=== PATIENT | female | born 1990 | race Caucasian/White ===

== ENCOUNTER 2020-01-07 14:54 | Outpatient (CLI) | payer MEDICAID, SELFPAY ==
--- NOTE | 2020-02-11 12:13 | WPDHOLTEREM ---
Holter/Event Monitor Holter/Event Monitor Date of procedure: 01/07/20 Procedure Type: 48 hour holter monitor Indications: Palpitations Conclusion: 1. 48 hour holter monitor on 01/07/20. 2. Underlying rhythm is sinus rhythm. HR range 56-160 bpm; average HR 92 bpm. 3. No premature supraventricular complexes. No supraventricular tachycardia. 4. No prematur ventricular complexes. No ventricular tachycardia. 5. No sinoatrial or atrioventricular blocks. No significant pauses greater than 2 seconds. 6. No symptoms available for correlation.
== END 2020-01-07 14:55 | disposition home or self-care (01) ==
LOC: ANHCARD 15:06
PROVIDERS: PCP Physician Assistant; Visit Provider Physician Assistant
DX: R00.2 Palpitations (principal)
CPT/HCPCS: 93225; 93226

== ENCOUNTER 2020-07-21 17:15 | Emergency (ER) | payer BC, SELFPAY ==
--- NOTE | ~2020-07-21 | XR_ITS ---
XR chest 1V portable DATE: 07/21/2020 18:47 INDICATION: Fever, cough, body aches for 4 days. TECHNIQUE: Portable AP chest on 07/21/2020 at 1839 hours COMPARISON: 10/24/2017 PA and lateral chest FINDINGS: Normal heart size. No hilar or mediastinal enlargement. No pulmonary infiltrate or consolid ation, pleural effusion or pulmonary vascular congestion or pneumothorax. Included skeletal structures are unremarkable. IMPRESSION: No active cardiopulmonary disease Reviewed, dictated and finalized at location A.
[2020-07-21 17:20] VITALS: BP 110/74; PULSE 102; RESP 17; TEMP 37.3; O2SAT 99
--- NOTE | 2020-07-21 17:32 | ED.ABDPAIN ---
HPI - Abdominal Pain General Chief Complaint: Abdominal Pain Stated Complaint: cough/vomiting/blood stool/diarrhea/fever Time Seen by Provider: 07/21/20 17:32 Source: patient Mode of arrival: ambulatory Limitations: no limitations History of Present Illness HPI narrative: 29 years old white female presents with cough, body aches, intermittent fever, diarrhea, sometimes have tinge of blood in it. The symptoms started 4 days ago. Patient received 2 25 mg of Aleve at 11:00 this morning. Patient diarrhea is slowing down after started on Imodium. Patient denies exposure to anybody with known having COVID-19. Patient does not work, lives alone, history of depression, anxiety and insomnia. Patient reports going out for shopping. Related Data Home Medications Medication Instructions Recorded Confirmed bupropion HCl [Wellbutrin XL] 150 mg PO QAM 07/21/20 clonazepam 0.5 mg PO DAILY 07/21/20 escitalopram oxalate [Lexapro] 5 mg PO DAILY 07/21/20 zolpidem [Ambien] 10 mg PO HS PRN 07/21/20 Allergies Allergy/AdvReac Type Severity Reaction Status Date / Time No Known Allergies Allergy Unverified 07/21/20 17:58 Review of Systems Review of Systems: Narrative: CONSTITUTIONAL: Denies fever, chills, or sweats. EYES: Denies visual changes, redness, or discharge. ENT: Denies rhinorrhea, congestion, sore throat, or otalgia. CARDIOVASCULAR: Denies chest pain, palpitations, or edema. RESPIRATORY: Denies cough or dyspnea. GASTROINTESTINAL: Denies abdominal pain, nausea, vomiting, or diarrhea. GENITOURINARY: Denies dysuria or hematuria. SKIN: Denies rash or itching. MUSCULOSKELETAL: Denies back pain, joint pain, or myalgia. NEUROLOGIC: Denies headache, numbness, or weakness. PSYCHIATRIC: Denies anxiety or depression. [facility] Past Medical History Medical History Anxiety Depression Insomnia Family History Family History Other Diabetes mellitus Family history of malignant neoplasm Social History Social History Smoking status: Never smoker Alcohol intake: never Gender identity (if verbalized by the patient): Female Exam Narrative: Exam Narrative: General appearance: Well-developed, well-nourished Skin: Normal color Head: Normocephalic, nontraumatic Eyes: Clear conjunctiva ENT: Oropharynx normal, ears normal, nose normal Neck: Supple, nontender Chest and respiratory: Airway patent, no respiratory distress, no accessory muscle use Heart: Regular rate/rhythm Abdomen: Soft, nontender, no organomegaly, quiet bowel sounds Vascular: Normal peripheral pulses, normal capillary refill. Musculoskeletal: Normal range of motion, nontender back Neurologic: Alert and oriented ?3, [employer] is normal as tested, no gross motor deficit Course Course Emergency Course: Stable Vital Signs Vital signs: Vital Signs Temperature 37.3 C 07/21/20 17:20 Pulse Rate 102 H 07/21/20 17:20 Respiratory Rate 17 07/21/20 17:20 Blood Pressure 110/74 07/21/20 17:20 Pulse Oximetry 99 07/21/20 17:20 Temperature 37.3 C 07/21/20 17:20 Pulse Rate 102 H 07/21/20 17:20 Respiratory Rate 17 07/21/20 17:20 Blood Pressure 110/74 07/21/20 17:20 Pulse Oximetry 99 07/21/20 17:20 MDM - Abdominal Pain MDM Narrative Medical decision making narrative: Viral syndrome, COVID-19 infection is my concern Labs, chest x-ray, IV fluid, COVID-19 test ordered. Further plan to follow Differential Diagnosis Differential diagnosis: Likely gastroenteritis and other (COVID-19 infection, electrolyte imbalance) Cr
[2020-07-21] MEDS: SODIUM CHLORIDE 0.9% IV 1,000 ML 999 ML IV CONT (18:30)
[2020-07-21 18:59] LABS: Basophils Percent Auto 0.6 % (0.2-1.2); Eosinophils Percent Auto 0.4 % (0-4.4); Hematocrit 33.9 % (37.0-47.0); Hemoglobin 11.4 g/dL (12.0-15.0); Immature Granulocyte Absolute 0.09 K/mm3 (0.00-0.031); Immature Granulocyte Percent A 1.8 % (0-0.5); Lymphocytes Absolute Auto 1.32 K/mm3 (0.9-3.2); Lymphocytes Percent Auto 25.8 % (18.3-44.2); Mean Corpuscular HGB Conc 33.6 g/dl (32-36); Mean Corpuscular Hemoglobin 28.1 pg (26-34); Mean Corpuscular Volume 83.5 fl (80-100); Mean Platelet Volume 11.2 fl (7.4-10.4); Monocytes Absolute Auto 0.9 K/mm3 (0.1-0.6); Monocytes Percent Auto 16.6 % (2.6-8.5); Neutrophils Absolute Auto 2.8 K/mm3 (1.3-6.7); Neutrophils Percent Auto 54.8 % (45.5-73.1); Platelet Count Result 225 k/mm3 (150-375); Red Blood Count 4.06 M/mm3 (4.2-5.4); Red Cell Distribution Width 13.2 % (11.5-14.5); White Blood Count 5.1 K/mm3 (4.5-10.0)
[2020-07-21 19:08] LABS: Add Urine Microscopic? YES; Appearance Urine Clear (Clear); Bacteria Urine Trace /hpf; Bilirubin Urine Negative (Negative); Blood Urine Negative (Negative); Color Urine Yellow (Yellow); Glucose Urine UA Negative (Negative); Ketones Urine Negative (Negative); Leukocyte Esterase Ur Negative LEU/UL (Negative); Nitrate Urine Negative (Negative); Protein Urine 1+ mg/dL (Negative); RBC Urine 0-2 /hpf (0-2); Specific Grav Ur 1.009 (1.001-1.035); Squamous Epithelial Cell Urine Few /hpf (Few); Urobilinogen Urine Negative mg/dL (<2.0); WBC Urine 0-3 /hpf
[2020-07-21 19:14] LABS: Alanine Aminotransferase 17 U/L (4-35); Albumin Level 4.1 g/dL (3.5-5.1); Alkaline Phosphatase 107 U/L (38-126); Anion Gap 9 mmol/L (8-16); Aspartate Amino Transferase 30 U/L (14-36); Bilirubin,Total 1.1 mg/dL (0.2-1.3); Blood Urea Nitrogen 8 mg/dL (7-17); Calcium 8.2 mg/dL (8.4-10.2); Carbon Dioxide 31 mmol/L (22-30); Chloride 92 mmol/L (98-107); Estimated CRCL calculation 117 ml/min; Estimated Glomerular Filt Rate > 60; Glucose 81 mg/dL (65-105); Lipase 50 U/L (23-300); Potassium 2.8 mmol/L (3.4-5.0); Sodium 132 mmol/L (137-145)
[2020-07-21 19:29] LABS: Beta HCG Quantitative < 2.39 mIU/ML
[2020-07-21] MEDS: LACTATED RINGERS 1,000 ML 999 ML IV CONT (19:32)
[2020-07-21] MEDS: POTASSIUM CHLORIDE 20 MEQ TABLET 40 MEQ PO (19:32)
[2020-07-21 20:35] VITALS: BP 112/73; PULSE 99; RESP 18; O2SAT 99
[2020-07-21 21:19] VITALS: BP 134/78; PULSE 94; RESP 20; TEMP 37.1; O2SAT 99
[2020-07-22 13:52] LABS: SARS-CoV-2 RNA PCR Negative
== END 2020-07-21 21:19 | disposition home or self-care (01) ==
PROVIDERS: Emergency Medicine; Emergency Provider Emergency Medicine; PCP Physician Assistant
DX: B34.9 Viral infection, unspecified (principal); Z20.828 Contact with and (suspected) exposure to other viral communicable diseases; F41.9 Anxiety disorder, unspecified; F32.9 Major depressive disorder, single episode, unspecified; G47.00 Insomnia, unspecified
CPT/HCPCS: 36415; 71045; 80053; 81001; 83605; 83690; 84702; 85025; 87635; 96360; 96361; 99283; A9270; C9803; J7030; J7120; U0003

== ENCOUNTER 2022-02-24 23:20 | Emergency (ER) | payer BC, MEDICAID, SELFPAY ==
--- NOTE | ~2022-02-24 | XR_ITS ---
EXAMINATION: XR chest 2V EXAM DATE: 02/25/2022 00:37 INDICATION: Chest pain. TECHNIQUE: Frontal and lateral projections of the chest obtained and reviewed. Comparison is made to prior examination from 07/21/2020. FINDINGS: The lungs are clear. There are no pleural effusions. The cardiomediastinal silhouette is within normal limits. There is no pneumothorax suspected. The bones and soft tissues are unremarkab le. IMPRESSION: No acute cardiopulmonary findings. Reviewed, dictated and finalized at location A.
[2022-02-24 23:23] VITALS: BP 126/83; PULSE 103; RESP 17; TEMP 36.3; O2SAT 100
[2022-02-25 00:34] LABS: Influenza A QL RT-PCR Positive (Negative); Influenza B QL RT-PCR Negative (Negative); SARS-CoV-2 RNA PCR Negative
--- NOTE | 2022-02-25 00:43 | ED.GENADULT ---
HPI - General Adult General Chief complaint: Upper Respiratory Infection Stated complaint: Cough for 16 days, pain with inspiration Time Seen by Provider: 02/24/22 23:27 Source: patient History of Present Illness HPI narrative: 31-year-old female presenting to the emergency department for evaluation of persistent cough and congestion. Patient states for the last 60 days she has had upper respiratory infection. Patient describes cough and chest tightness. Few days ago patient was started on amoxicillin and provided Tessalon Perles for cough. Patient states that she still feels chest pressure and shortness of breath. Patient denies any chest pain. Patient denies any associated nausea vomiting or diarrhea. Patient denies any prior cardiac history. Patient is not a smoker denies any pulmonary history. Patient has no prior history of PE or DVT. Patient denies any lower extremity pain or swelling. Patient has no recent long car rides or plane trips, patient is on oral control, pushpa. Related Data Home Medications Medication Instructions Recorded Confirmed bupropion HCl [Wellbutrin XL] 150 mg PO QAM 07/21/20 clonazepam 0.5 mg PO DAILY 07/21/20 escitalopram oxalate [Lexapro] 5 mg PO DAILY 07/21/20 zolpidem [Ambien] 10 mg PO HS PRN 07/21/20 amoxicillin-pot clavulanate tablet 02/24/22 benzonatate mg PO 02/24/22 Allergies Allergy/AdvReac Type Severity Reaction Status Date / Time No Known Allergies Allergy Verified 02/24/22 23:51 Review of Systems Review of Systems: CONSTITUTIONAL: Denies fever, chills, or sweats. EYES: Denies visual changes, redness, or discharge. ENT: Denies rhinorrhea, congestion, sore throat, or otalgia. CARDIOVASCULAR: Denies chest pain, palpitations, or edema. RESPIRATORY: Cough and congestion GASTROINTESTINAL: Denies abdominal pain, nausea, vomiting, or diarrhea. GENITOURINARY: Denies dysuria or hematuria. SKIN: Denies rash or itching. MUSCULOSKELETAL: Denies back pain, joint pain, or myalgia. [facility] Past Medical History Medical History (Updated 02/25/22 @ 01:07 by Ja Benton MD) Anxiety Depression Insomnia Family History Family History Other Diabetes mellitus Family history of malignant neoplasm Social History Social History Smoking status: Never smoker Alcohol intake: never Gender identity (if verbalized by the patient): Female Course Course Emergency Course: APPEARANCE: Well appearing, no pain, no distress, well-nourished. HEAD: normocephalic, atraumatic. EYES: PERRLA/EOMI, conjunctivae clear. NOSE: Normal no drainage NECK: Supple. No adenopathy, no masses. RESPIRATORY: Airway patent, respirations nonlabored. Clear to auscultation bilaterally, no rales, rhonchi, wheezing. CARDIOVASCULAR: Regular rate and rhythm without murmurs rubs or gallops. ABDOMINAL: Soft, nontender, nondistended, normal bowel sounds MUSCULOSKELETAL: Moves all extremities. Strength/ROM intact, No edema, No calf tenderness. NEURO: Alert. Cranial nerves II through XII intact. Grossly intact SKIN: Warm, dry. Normal Color Vital Signs Vital signs: Vital Signs Temperature 97.3 F L 02/24/22 23:23 Pulse Rate 103 H 02/24/22 23:23 Respiratory Rate 17 02/24/22 23:23 Blood Pressure 126/83 02/24/22 23:23 Pulse Oximetry 100 02/24/22 23:23 Temperature 97.3 F L 02/24/22 23:23 Pulse Rate 97 02/25/22 01:21 Respiratory Rate 16 02/25/22 01:21 Blood Pressure 116/81 02/25/22 01:21 Pulse Oximetry 100 02/25/22 01:21 Medical Decision Making MDM Narrative Medical decision making narrative: D-dimer was negative so low concern for pulmonary medicine. Patient did test positive for influenza A. Patient was updated on the results of her work-up and plan for treatment at home. All questions and concerns were addressed. Vital Signs Vital Signs: Vital Signs Temperat
[2022-02-25] MEDS: ALBUTEROL SULFATE NEB 2.5 MG/0.5 ML INH 5 MG INHALATION (00:53)
[2022-02-25 01:17] LABS: D Dimer 0.23 ug/mL (<0.48)
[2022-02-25 01:21] VITALS: BP 116/81; PULSE 97; RESP 16; O2SAT 100
== END 2022-02-25 01:32 | disposition home or self-care (01) ==
PROVIDERS: Emergency Provider Emergency Medicine; PCP Physician Assistant
DX: J10.1 Influenza due to other identified influenza virus with other respiratory manifestations (principal); F41.9 Anxiety disorder, unspecified; F32.A Depression, unspecified; G47.00 Insomnia, unspecified; Z20.822 Contact with and (suspected) exposure to COVID-19
CPT/HCPCS: 36415; 71046; 85380; 87502; 94640; 99283; C9803; U0003; U0005

== ENCOUNTER 2022-04-29 19:25 | Emergency (ER) | payer MEDICAID, SELFPAY ==
--- NOTE | ~2022-04-29 | XR_ITS ---
EXAMINATION: XR chest 2V Exam Date/Time: 04/29/2022 19:45 CDT HISTORY: shortness of breath, cough Comparison: 02/25/2022. RESULT: Lines, tubes, and devices: None. Lungs and pleura: Clear. Cardiomediastinal silhouette: Stable cardiomediastinal silhouette. Other: No acute osseous or upper abdominal finding. IMPRESSION: No acute cardiopulmonary process. Reviewed, dictated and finalized at location K.
[2022-04-29 19:38] VITALS: BP 139/95; PULSE 104; RESP 20; TEMP 37.2; O2SAT 99
--- NOTE | 2022-04-29 19:44 | ECG_ITS ---
Measurements Intervals [place] Rate: 93 P: 38 DE: 135 QRS: 28 QRSD: 85 T: 46 QT: 333 QTc: 414 Interpretive Statements SINUS RHYTHM NORMAL ECG NO PREVIOUS ECG AVAILABLE FOR COMPARISON Electronically Signed On 04-30-2022 12:36:06 CDT by Demetrius Jones M.D.
--- NOTE | 2022-04-29 19:50 | ED.GENADULT ---
HPI - General Adult General Chief complaint: Shortness of Breath/Dyspnea Stated complaint: SOB Source: patient Mode of arrival: ambulatory Limitations: no limitations History of Present Illness HPI narrative: Patient presents for evaluation of shortness of breath. She indicates she has experienced shortness of breath for several months. She states at times she develops a dull discomfort in her back between her scapulas. She was experiencing this earlier so decided to come in for further evaluation. She reports hot flashes, occasional cough, nausea and wheezing. She denies objective fever, chills, palpitations, vomiting, diarrhea, body aches, chest pain. A few of her coworkers tested positive for COVID within the last week. She had COVID in 2019. She has also been vaccinated for COVID. She had influenza earlier this year. She saw pulmonology in [place] on 04/23/22. She states she has PFT's ordered for May. She had a D-dimer during her 02/25/22 ER visit which was negative. She had a 48-hour monitor in 2019 that showed sinus rhythm with a rate between 56 and 160, average rate of 92, no pauses, no ventricular blocks, no premature ventricular complexes. She recently discontinued Samina. No swelling. No history of DVT or PE. She does not smoke. No recent smoke exposure. She recently had Wellbutrin and cymbalta doses decreased. She also has clonazepam ordered which she takes approximately once daily. No recent increase in stress or anxiety. Neb tx at hospital in past effective. She already has albuterol inhalers. Related Data Home Medications Medication Instructions Recorded Confirmed albuterol sulfate 90 mcg/actuation 1 inh inhalation DIRECTED 04/29/22 04/29/22 aerosol inhaler bupropion HCl 150 mg 24 hr tablet, 150 tablet PO DAILY 04/29/22 04/29/22 extended release clonazepam 0.5 mg tablet 0.5 tablet TID 04/29/22 04/29/22 duloxetine 30 mg capsule,delayed 30 cap PO DAILY 04/29/22 04/29/22 release zolpidem 10 mg tablet 10 tablet HS 04/29/22 04/29/22 Allergies Allergy/AdvReac Type Severity Reaction Status Date / Time No Known Allergies Allergy Verified 04/29/22 19:53 Review of Systems Review of Systems: CONSTITUTIONAL: Reports hot flashes. Denies fever, chills, or sweats. EYES: Denies visual changes, redness, or discharge. ENT: Denies rhinorrhea, congestion, sore throat, or otalgia. CARDIOVASCULAR: Denies chest pain, palpitations, or edema. RESPIRATORY: Reports shortness of breath, wheezing, nonproductive cough. GASTROINTESTINAL: Reports nausea. Denies abdominal pain, vomiting, or diarrhea. GENITOURINARY: Denies dysuria or hematuria. SKIN: Denies rash or itching. MUSCULOSKELETAL: Reports back pain. Denies joint pain, or myalgia. NEUROLOGIC: Denies headache, numbness, dizziness, or weakness. PSYCHIATRIC: Denies anxiety or depression. [facility] Past Medical History Medical History (Updated 04/29/22 @ 20:08 by CHRISTIAN Ribeiro, ) Anxiety Depression Hirsutism Insomnia PCOS (polycystic ovarian syndrome) Surgical History Surgical History (Updated 04/29/22 @ 19:58 by CHRISTIAN Ribeiro, ) No pertinent past surgical history Family History Family History Other Diabetes mellitus Family history of malignant neoplasm Social History Social History Smoking status: Never smoker Alcohol intake: never Substance use: never Gender identity (if verbalized by the patient): Female Spiritual care concerns: No Exam Narrative: GENERAL: Well-appearing, well-nourished, and in no acute distress. HEAD: Normocephalic, atraumatic. EYES: PERRLA and EOMI. ENT: Nares clear, no rhinorrhea or epistaxis. Mucous membranes moist. Mild posterior pharyngeal erythema without exudate. Uvula is midline. Bilateral TMs pearly salmon nonbulging NECK: Supple. No adenopathy or masses.
== END 2022-04-29 20:11 | disposition home or self-care (01) ==
PROVIDERS: Emergency Provider Nurse Practitioner; PCP Physician Assistant
DX: R06.02 Shortness of breath (principal); Z20.822 Contact with and (suspected) exposure to COVID-19; E28.2 Polycystic ovarian syndrome; F41.9 Anxiety disorder, unspecified; F32.A Depression, unspecified
CPT/HCPCS: 71046; 87081; 87426; 87804; 87880; 93005; 99213; C9803; G0463

== ENCOUNTER 2024-08-26 08:38 | Emergency (ER) | payer OTHER, SELFPAY ==
[2024-08-26 09:01] VITALS: BP 115/78; PULSE 97; RESP 16; TEMP 37.1; O2SAT 96
[2024-08-26 09:02] VITALS: BP 115/78; PULSE 97; RESP 16; TEMP 37.1; O2SAT 96
--- NOTE | 2024-08-26 09:03 | ED.URI ---
HPI - URI/Sore Throat General Chief Complaint: Upper Respiratory Infection Stated Complaint: strep throat Time Seen by Provider: 08/26/24 09:05 Source: patient Mode of arrival: ambulatory Limitations: no limitations History of Present Illness HPI Narrative: Shift is a 34-year-old female who presents with 3 days sore throat, fever, body aches. Patient has history strep. Reports fever 102. Denies any nausea vomiting diarrhea, ear pain, congestion. Has been taking Tylenol and Mucinex DM Related Data Home Medications Medication Instructions Recorded Confirmed clonazepam 0.5 mg tablet 1 mg PO BID 04/29/22 08/26/24 zolpidem 10 mg tablet 10 tablet HS 04/29/22 08/26/24 escitalopram oxalate 20 mg tablet 20 mg PO DAILY 08/26/24 08/26/24 medroxyprogesterone 10 mg tablet See Rx Instructions .Route .COMPLEX 08/26/24 08/26/24 Allergies Allergy/AdvReac Type Severity Reaction Status Date / Time No Known Allergies Allergy Verified 08/26/24 08:59 Review of Systems Review of Systems: All systems reviewed & are unremarkable except as noted in HPI and below Constitutional: Constitutional: Reports body ache(s), Reports fever(s), Denies headache(s), Denies malaise and Denies weakness Eyes: Eyes: Denies loss of vision ENT: Denies otalgia, Denies headache(s), Denies nasal congestion, Denies sinus pain and Reports sore throat Cardiovascular: Cardiovascular: Denies chest pain, Denies irregular heart rhythm and Denies dyspnea Respiratory: Respiratory: Denies cough and Denies dyspnea Gastrointestinal: Gastrointestinal: Denies abdominal pain, Denies melena, Denies hematochezia, Denies diarrhea, Denies nausea and Denies vomiting Musculoskeletal: Musculoskeletal: Denies back pain, Reports myalgias and Denies arthralgias Integumentary/Breasts: Skin/Breast: Denies pruritus and Denies rash Neurologic: Denies headache(s), Denies loss of vision and Denies weakness Psychiatric: Psychiatric: Reports no additional psychiatric complaints PMF Past Medical History Medical History Anxiety Depression Hirsutism Insomnia PCOS (polycystic ovarian syndrome) Surgical History Surgical History No pertinent past surgical history Family History Family History Other Diabetes mellitus Family history of malignant neoplasm Social History Social History Smoking status: Never smoker Alcohol intake: never Substance use: never Gender identity (if verbalized by the patient): Female Spiritual care concerns: No Comments At time of signature, agree with nursing past medical, surgical, social and family history. There is no relevant family history pertinent to the presenting complaint. Exam Const: General: cooperative, healthy appearing, comfortable, no acute distress and well nourished Nutritional Appearance: well nourished Orientation/consciousness: patient oriented x3 Limitations: no limitations HENMT: Head: normal to inspection, normocephalic and atraumatic Ears: hearing grossly normal bilaterally, external ears normal, TM's normal bilaterally and EAC's normal Face/Nose/Sinus: Normal external nose present, Normal nares present, Normal nasal mucous membranes and turbinates present, Normal septum present, normal facial exam, sinuses nontender and face symmetric Face and sinus: normal facial exam, sinuses nontender and face symmetric Mouth: Yes Normal oral and palatal mucosa present, Yes lip normal and Yes moist mucous membranes Teeth and gingiva: dentition normal Throat: uvula midline, abnormal tonsil bilateral erythema, exudates and hypertrophy 3+, posterior oropharynx abnormal edema, erythema and exudates and postnasal drainage Eyes: General: appearance normal, both eyes and all related structures Alignment and
[2024-08-26 09:30] LABS: EDSTREPNEGPOS1 Positive (Negative)
== END 2024-08-26 09:22 | disposition home or self-care (01) ==
PROVIDERS: Emergency Provider Nurse Practitioner Family
DX: J02.0 Streptococcal pharyngitis (principal); F41.9 Anxiety disorder, unspecified; F32.A Depression, unspecified; E28.2 Polycystic ovarian syndrome; L68.0 Hirsutism
CPT/HCPCS: 87880; 99213; G0463

== ENCOUNTER 2024-09-09 18:30 | Emergency (ER) | payer OTHER, SELFPAY ==
[2024-09-09 18:39] VITALS: BP 132/78; PULSE 81; RESP 18; TEMP 36.4; O2SAT 99
--- NOTE | 2024-09-09 18:42 | ED.SKABFB ---
HPI - Skin/Abscess/Foreign Bdy General Chief complaint: Skin/Abscess/Foreign Body Stated complaint: scalp rash Time Seen by Provider: 09/09/24 18:45 Source: patient, RN notes reviewed and old records reviewed Mode of arrival: ambulatory Limitations: no limitations History of Present Illness HPI narrative: patient presents with complaints of burning, itching, flaking to the scalp. She reports symptoms have been present for about 3 weeks. She denies changing hair products, soaps, shampoos. She reports symptoms have been getting worse. States that she is now having some hair loss as results. Related Data Home Medications Medication Instructions Recorded Confirmed clonazepam 0.5 mg tablet 1 mg PO BID 04/29/22 09/09/24 zolpidem 10 mg tablet 10 tablet HS 04/29/22 09/09/24 escitalopram oxalate 20 mg tablet 20 mg PO DAILY 08/26/24 09/09/24 medroxyprogesterone 10 mg tablet See Rx Instructions .Route .COMPLEX 08/26/24 09/09/24 Allergies Allergy/AdvReac Type Severity Reaction Status Date / Time No Known Allergies Allergy Verified 09/09/24 18:37 Review of Systems Review of Systems: All systems reviewed & are unremarkable except as noted in HPI and below Constitutional: Constitutional: Reports no additional constitutional complaints ENT: Reports system reviewed and no additional complaints, except as documented Cardiovascular: Cardiovascular: Reports no additional cardiovascular complaints Respiratory: Respiratory: Reports no additional respiratory complaints Gastrointestinal: Gastrointestinal: Reports no additional gastrointestinal complaints Integumentary/Breasts: Skin/Breast: Reports system reviewed and no additional complaints, except as docu and Reports as per HPI [facility] Past Medical History Medical History Anxiety Depression Hirsutism Insomnia PCOS (polycystic ovarian syndrome) Surgical History Surgical History No pertinent past surgical history Family History Family History Other Diabetes mellitus Family history of malignant neoplasm Social History Social History Smoking status: Never smoker Alcohol intake: never Substance use: never Gender identity (if verbalized by the patient): Female Spiritual care concerns: No Comments At the time of my signature, I reviewed and agree with the nursing past medical, surgical, social, and family history. There is no relevant family history pertinent to the patient complaint. Exam Const: General: cooperative, no acute distress, alert and awake Orientation/consciousness: oriented to person, oriented to place and oriented to time HENMT: Head: normal to inspection Resp: Effort & Inspection: normal respiratory effort and able to speak in complete sentences Auscultation: clear to auscultation bilaterally, no crackles, no rales, no rhonchi and no wheezes Cardio: Palpation: normal PMI Rate: regular rate Rhythm: regular rhythm Heart sounds: S1 normal heart sound present and S2 normal heart sound present Skin: General skin exam: dry skin and other (flakes, thickened skin to scalp) Neuro: General: oriented to person, oriented to place and oriented to time Cranial nerves: Yes CN's II-XII intact bilaterally Psych: Appearance: grossly normal Thought process: Normal thought process present Insight: Good insight present (Psych) Judgement: Good judgement present (Psych) Course Course Level of Care: Express Care Visit Vital Signs Vital signs: Reviewed MDM - Skin/Abscess/Foreign Bdy MDM Narrative Medical decision making narrative: Exam consistent with seborrheic dermatitis. Recommend coal tar shampoo, follow-up with primary and Dermatology. Discharge instructions reviewed with patient, as well as provided in writing per
== END 2024-09-09 18:55 | disposition home or self-care (01) ==
PROVIDERS: Emergency Provider Nurse Practitioner Family
DX: L21.9 Seborrheic dermatitis, unspecified (principal); Z79.899 Other long term (current) drug therapy
CPT/HCPCS: 99211; G0463

== ENCOUNTER 2025-05-15 19:19 | Emergency (ER) | payer OTHER, SELFPAY ==
[2025-05-15 19:20] VITALS: BP 114/55; PULSE 108; RESP 18; TEMP 36.7; O2SAT 99
[2025-05-15 19:37] LABS: EDUAAPPEAR Cloudy; EDUABILI Negative (Negative); EDUABLOOD Negative (Negative); EDUACOLOR1 Yellow; EDUAGLUCOSE Negative (Negative); EDUAKETONE Negative (Negative); EDUALEUKO Trace (Negative); EDUANITRATE Negative (Negative); EDUAPH 6.5; EDUAPROTEIN 1+ (Negative); EDUASPGRAVITY 1.025; EDUAUROBILI 0.2
--- NOTE | 2025-05-15 19:41 | ED.FEMALEGU ---
HPI - Female Genitourinary General Chief complaint: Urogenital-Female Stated complaint: UTI Source: patient Mode of arrival: ambulatory Limitations: no limitations History of Present Illness HPI Narrative: Patient is a 34-year-old female with PCOS who presents to clinic for complaints of a vaginal fishy odor, itching, and burning with urination x 1 week. She states that she used Femiclear [id number], but has not had any relief. Denies any fevers, nausea, vomiting, diarrhea, concerns for STDs, or history of kidney stones. Related Data Home Medications ?Medication ?Instructions ?Recorded ?Confirmed ?Last Taken ?Type clonazepam 0.5 mg tablet 1 mg PO BID 04/29/22 05/15/25 Unknown History zolpidem 10 mg tablet 10 tablet HS 04/29/22 09/09/24 Unknown History escitalopram oxalate 20 mg tablet 20 mg PO DAILY 08/26/24 05/15/25 Unknown History medroxyprogesterone 10 mg tablet See Rx Instructions .Route .COMPLEX 08/26/24 05/15/25 Unknown History clonazepam 1 mg tablet mg 05/15/25 Unknown History dextromethorphan IR 45 PO 05/15/25 Unknown History mg-bupropion ER 105 mg biphasic tablet (Auvelity) lurasidone 20 mg tablet mg 05/15/25 Unknown History pen needle, diabetic 31 gauge x 05/15/25 05/15/25 Unknown History 04/02 (TRUEplus Pen Needle) Allergies Allergy/AdvReac Type Severity Reaction Status Date / Time No Known Allergies Allergy Verified 05/15/25 19:26 Review of Systems Review of Systems: CONSTITUTIONAL: Denies body aches, fever, chills, or sweats. CARDIOVASCULAR: Denies chest pain, palpitations, or edema. RESPIRATORY: Denies cough or dyspnea. GASTROINTESTINAL: Denies abdominal pain, nausea, vomiting, or diarrhea. GENITOURINARY: Reports dysuria, vaginal fishy odor, and itching to vagina. Denies frequency, urgency, hematuria, flank pain, discharge. SKIN: Denies rash, itching, or wounds. MUSCULOSKELETAL: Denies back pain or myalgia. All systems reviewed & are unremarkable except as noted in HPI and below PMFSH Past Medical History Medical History Hirsutism PCOS (polycystic ovarian syndrome) Anxiety Insomnia Depression Surgical History Surgical History No pertinent past surgical history Family History Family History Other Diabetes mellitus Family history of malignant neoplasm Social History Social History Smoking status: Never smoker Alcohol intake: never Substance use: never Gender identity (if verbalized by the patient): Female Spiritual care concerns: No Comments At time of signature, I have reviewed and agree with nursing past medical, surgical, social and family history unless otherwise noted. Please see nursing chart for further information. There is no relevant family history pertinent to the presenting complaint. Exam Narrative: GENERAL: Well-appearing and in no acute distress. ENT: Mucous membranes pink and moist. NECK: Normal AROM. ?Supple. ? CHEST: ?No respiratory distress. Clear to auscultation. HEART: Regular rate and rhythm. ABDOMEN: Soft, nontender, nondistended, normal active bowel sounds. ?No CVA tenderness. : Patient deferred exam. SKIN: Warm, dry, no rash. NEURO: No focal deficits. Alert and oriented x3. Gait steady. PSYCH: ?Normal affect. ? Course Course Level of Care: Express Care Visit Vital Signs Vital signs: Vital Signs Temperature 98.0 F 05/15/25 19:20 Pulse Rate 108 H 05/15/25 19:20 Respiratory Rate 18 05/15/25 19:20 Blood Pressure 114/55 L 05/15/25 19:20 Pulse Oximetry 99 05/15/25 19:20 Oxygen Delivery Room Air 05/15/25 19:20 Temperature 98.0 F 05/15/25 19:20 Pulse Rate 108 H 05/15/25 19:20 Respiratory Rate 18 05/15/25 19:20 Blood Pressure 114/55 L 05/15/25 19:20 Pulse Oximetry 99 05/15/25 19:20 Oxygen Delivery Room Air 05/15/25 19:20 Reviewed. MDM - Female Genitourinary MDM Narrative Medical decision making narrative: Discussed physical exam findings. Given patient's symptoms her UA is not consistent with the UTI. Culture pending for UA. Swab pending for BV. Advised supportive measures and signs/symptoms to go to the ER. Pt is appropriate for outpatient treatment and follow up. Differential Diagnosis Differential diagnosis: Likely urinary tract infection, bacterial vaginosis and other (vaginal yeast infection) Lab Data Attestation: I reviewed the patient's lab results. Labs: Lab Results 05/15/25 Range/Units 19:34 POC Urine Color Yellow POC Urine Clarity Cloudy POC Urine pH 6.5 POC Ur Specif [place] 1.025 POC Urine Protein 1+ (Negative) POC Ur Glucose (UA) Negative (Negative) POC Urine Ketones Negative (Negative) POC Urine Blood Negative (Negative) POC Urine Nitrite Negative (Negative) POC Urine Bilirubin Negative (Negative) POC Urine Urobilinogen 0.2 POC U Leukocyte Esteras Trace (Negative) Critical Care Time Critical Care Time Critical Care Time: No Discharge Plan Discharge Clinical Impression: Vaginal discharge, Itching of vagina Patient Disposition: Home Condition: Stable Instructions: Antibiotic Form, Bacterial Vaginosis (ED), Yeast Infection (ED) Additional Instructions: Take medication as directed- you are covered for BV and yeast infection Bacterial vaginosis happens when bacteria usually found in the vagina grows too much. This growth upsets the balance of good and bad bacteria in the vagina. It tends to come back within 3 to 12 months. - practice safe sex by using condoms consistently, avoid douching, and maintain healthy vaginal hygiene by avoiding scented products and wearing breathable cotton underwear. - Some evidence suggests that taking probiotic supplements or consuming probiotic-rich foods like yogurt may help maintain a healthy vaginal microbiome and potentially reduce the risk of BV - Stress can weaken the immune system, potentially making you more susceptible to infections, including BV - A balanced diet can support overall health and a healthy vaginal microbiome - Avoid harsh/scented soaps Follow up with your primary care provider or Obgyn as needed in 1 week Go to the ER for worsening symptoms or concerns Patient Language: Romanian Prescriptions: New fluconazole 150 mg tablet 150 mg PO ONCE Qty: 1 0RF metronidazole 500 mg tablet 500 mg PO BID 7 Days Qty: 14 0RF No Action clonazepam 0.5 mg tablet 1 mg PO BID zolpidem 10 mg tablet 10 tablet HS medroxyprogesterone 10 mg tablet See Rx Instructions .ROUTE .COMPLEX Rx Instructions: 10 mg escitalopram oxalate 20 mg tablet 20 mg PO DAILY clonazepam 1 mg tablet (DME) pen needle, diabetic [TRUEplus Pen Needle] 31 gauge x 5/16 needle MISCELLANEOUS lurasidone 20 mg tablet Auvelity 45-105 mg tablet, IR and ER, biphasic PO Follow-up/Referrals: PHYSICIAN,SUPERVISOR [employer] [Primary Care Provider] - Time of Disposition: 20:00
[2025-05-15 19:46] LABS: BEDSIDEPREGUCG Negative (Negative)
[2025-05-18 17:53] LABS: Bacterial Vaginosis NEGATIVE (NEGATIVE)
== END 2025-05-15 20:08 | disposition home or self-care (01) ==
DX: N89.8 Other specified noninflammatory disorders of vagina (principal); E28.2 Polycystic ovarian syndrome; F41.9 Anxiety disorder, unspecified; F32.A Depression, unspecified
CPT/HCPCS: 81003; 81025; 81513; 87086; 99213; G0463